=== PATIENT | female | born 1995 | race African-American/Black ===

== ENCOUNTER 2023-05-14 02:50 | Emergency (ER) | payer MEDICAID ==
[~2023-05-14] VITALS: Ht 162.6 cm; Wt 134.0 kg
[2023-05-14 03:02] VITALS: BP 128/72; PULSE 82; RESP 16; TEMP 98.7
[2023-05-14] MEDS ORDERED: HYDR2.5C39 TOP (04:54)
[2023-05-14] MEDS ORDERED: KETOROLAC TROMETH 60MG/2ML VIAL IM ONE (05:00)
[2023-05-14 05:31] VITALS: O2SAT 98
== END 2023-05-14 06:02 | disposition home or self-care (01) ==
LOC: ER 02:50
DX: K64.4 Residual hemorrhoidal skin tags (principal); E66.01 Morbid (severe) obesity due to excess calories; Z32.02 Encounter for pregnancy test, result negative; Z68.43 Body mass index [BMI] 50.0-59.9, adult
CPT/HCPCS: 81025; 96372; 99283; J1885

== ENCOUNTER 2024-04-17 15:14 | Emergency (ER) | payer MEDICAID ==
[~2024-04-17] VITALS: Ht 162.6 cm; Wt 135.8 kg
[~2024-04-17 15:14] MED LIST: HYDR2.5C39 TOP
--- NOTE | 2024-04-17 15:57 | ED.PDOC ---
History of Present Illness HPI Comments 28F presents to the ER w/ no prior Hx associated to the c/c of tooth pain which started on Thursday. Pt reports that she took Motrin, Tylenol and Ibuprofen and stated that none of the medications helped. Denies chills, fever, N/V/D, SOB, CP or other associated symptoms, modifiers, or recent injuries at this time. Chief Complaint: Tooth Pain Time Seen by MD: 15:45 Primary Care Provider: UNKNOWN Reviewed Notes: Nurses Notes, Medications, Allergies Allergies: Coded Allergies: NO KNOWN ALLERGIES (Unverified , 05/14/23) Home Meds Active Scripts Amoxicillin & Pot Clavulanate (Augmentin) 500 Mg Tab, 1 TAB PO BID for 7 Days, #14 TAB Prov:VINITA LUDWIG MD 04/17/24 Ibuprofen Micronized (MOTRIN TABLET) 600 Mg Tb, 600 MG PO TID PRN for 5 Days, #15 TAB *Black box warning-NSAIDS can increase risk of IA & hypertension, GI irritation, ulceration, bleed, perferation. Do not use post cardiac surgery. Use short duration/lowest effective dose. Prov:VINITA LUDWIG MD 04/17/24 Hydrocortisone Base (Anusol-Hc) 2.5 % Cre, 1 APPLIC TOP BID PRN, #1 CRE 0 Refills Prov:MURRAY KINGSLEY 05/14/23 Information Source: Patient Mode of Arrival: Ambulatory Severity: Moderate Timing: Days Duration: Since onset, Days Prehospital treatment: None Past Medical History PAST MEDICAL HISTORY: Denies Surgical History: Denies all surgeries MEDICAL OFFICE TECHNICIAN History: No Pertinent MEDICAL OFFICE TECHNICIAN History Family History Family History: Reviewed,noncontributory to illness, Unknown Social History Smoker: Non-Smoker Alcohol: Denies ETOH Use Drugs: Denies Drug Use Lives In: Home Constitutional: denies: chills, diaphoresis, fatigue, fever, malaise, sweats, weakness, others EENTM: reports: others (tooth pain); denies: blurred vision, double vision, ear bleeding, ear discharge, ear drainage, ear pain, ear ringing, eye pain, eye redness, hearing loss, mouth pain, mouth swelling, nasal discharge, nose bleeding, nose congestion, nose pain, photophobia, tearing, throat pain, throat swelling, voice changes Respiratory: denies: cough, hemoptysis, orthopnea, SOB at rest, shortness of breath, SOB with excertion, stridor, wheezing, others Cardiovascular: denies: chest pain, dizzy spells, diaphoresis, Dyspnea on exertion, edema, irregular heart beat, left arm pain, lightheadedness, palpitations, PND, syncope, others Gastrointestinal: denies: abdomen distended, abdominal pain, blood streaked bowels, constipated, diarrhea, dysphagia, difficulty swallowing, hematemesis, melena, nausea, poor appetite, poor fluid intake, rectal bleeding, rectal pain, vomiting, others Genitourinary: denies: abnormal vagina bleeding, burning, dyspareunia, dysuria, flank pain, frequency, hematuria, incontinence, pain, , vagina discharge, urgency, others Neurological: denies: dizziness, fainting, headache, left sided numbness, left sided weakness, numbness, paresthesia, pre-existing deficit, right sided numbness, right sided weakness, seizure, speech problems, tingling, tremors, weakness, others Musculoskeletal: denies: back pain, gout, joint pain, joint swelling, muscle pa in, muscle stiffness, neck pain, others Integumetry: denies: bruises, change in color, change in hair/nails, dryness, laceration, lesions, lumps, rash, wounds, others Allergic/Immunocompromised: denies: Difficulty Healing, Frequent Infections, Hives, Itching, others Hematologic/Lymphatic: denies: anemia, blood clots, easy bleeding, easy bruising, swollen glands, others Endocrine: denies: excessive hunger, excessive sweating, excessive thirst, excessive urination, flushing, intolerance to cold, intolerance to heat, unexplained weight gain, unexplained weight loss, others Psychiatric: denies: anxiety, bipolar disorder, depression, hopeless, panic disorder, schizophrenia, sleepless, suicidal, others All Other Systems: Reviewed and Negative Physical Exam General Appearance: Moderate Distress, Normal HEENT: Normal ENT Inspection, Pharynx Normal, TMs Normal, Other (Dental caries) Neck: Full Range of Motion, Non-Tender, Normal, Normal Inspection Respiratory: Chest Non-Tender, Lungs Clear, No Accessory Muscle Use, No Respiratory Distress, Normal Breath Sounds Cardiovascular: No Edema, No JVD, No Murmur, No Gallop, Normal Peripheral Pulses, Regular Rate/Rhythm Breast Exam: Deferred Gastrointestinal: No Organomegaly, Non Tender, No Pulsatile Mass, Normal Bowel Sounds, Soft Genitalia: Deferred Pelvic: Deferred Rectal: Deferred Extremities: No calf tenderness, Normal capillary refill, Normal inspection, Normal range of motion, Non-tender, No pedal edema Musculoskeletal : Apperance: Normal Neurologic: Alert, final inspector balance wheel II-XII nml as Tested, No Motor Deficits, Normal Affect, Normal Mood, No Sensory Deficits Cerebellar Function: Normal Reflexes: Normal Skin: Dry, Normal Color, Warm Peripheral Pulses: 3+ Radial (R), 3+ Radial (L) Lymphatic: No Adenopathy Was a procedure done? Was a procedure done?: No Differential Dx Considerations may include: Dental caries Tooth decay X-Ray, Labs, Meds, VS Vital Signs Date Time Temp Pulse Resp B/P (MAP) Pulse Ox O2 Delivery O2 Flow Rate FiO2 04/17/24 16:52 99.8 74 17 140/92 (108) 99 99.8 04/17/24 16:52 74 17 04/17/24 15:30 99.7 72 18 144/97 (113) 98 Current Medications Medications (Trade) Dose Ordered Sig/Martinez Route Start Time Stop Time Status Last Admin Ketorolac Tromethamine (Toradol Injection) 60 mg ONCE ONCE IM 04/17/24 16:15 04/17/24 16:16 DC 04/17/24 16:38 Patient alert. On examination tooth decay. Vitals stable. Answering all questions. Has been having tooth problem for a long time. No leg swelling. No shortness a breath. Heart rate within normal limits. Saturation pristine on room air. Was given prescription of Motrin Augmentin antibiotic. Explained to the patient. Was told to follow up with her dentist. Was told to follow up with her primary care physician. Was told to come back if there is any problem. Time of 1ST Reevaluation: 16:15 Reevaluation 1ST: Improved Patient Education/Counseling: Diagnosis, Treatment, Prognosis Family Education/Counseling: No Family Present Departure 1 Departure Time of Disposition: 16:15 Impression: Primary Impression: Dental caries Disposition: HOME / SELF CARE / HOMELESS Condition: Good e-Prescriptions Amoxicillin & Pot Clavulanate (Augmentin) 500 Mg Tab 1 TAB PO BID for 7 Days, #14 TAB Prov: VINITA LUDWIG MD 04/17/24 Ibuprofen Micronized (MOTRIN TABLET) 600 Mg Tb 600 MG PO TID PRN for 5 Days, #15 TAB *Black box warning-NSAIDS can increase risk of IA & hypertension, GI irritation, ulceration, bleed, perferation. Do not use post cardiac surgery. Use short duration/lowest effective dose. Prov: VINITA LUDWIG MD 04/17/24 Discharged With: Self Critical Care Note Critical Care Time?: No Stability Stability form required: No Heart Score Heart Score: Heart Score Response (Comments) Value History N/A 0 EKG N/A 0 Age N/A 0 Risk Factors N/A 0 Troponin N/A 0 Total 0 I personally scribed for VINITA LUDWIG MD ([email or web address]) on 04/17/24 at 15:57. Electronically submitted by Wilber Ta ([email or web address]). VINITA LUDWIG MD Apr 17, 2024 15:57
[2024-04-17] MEDS ORDERED: AMOX500T86 PO (16:16)
[2024-04-17] MEDS ORDERED: IBU600T PO (16:16)
[2024-04-17] MEDS: KETOROLAC TROMETH 60MG/2ML VIAL IM ONE (16:38)
[2024-04-17 16:52] VITALS: BP 140/92; PULSE 74; RESP 17; TEMP 99.8; O2SAT 99
== END 2024-04-17 17:41 | disposition home or self-care (01) ==
LOC: ER 15:14
DX: K02.9 Dental caries, unspecified (principal); Z79.899 Other long term (current) drug therapy
CPT/HCPCS: 96372; 99283; J1885